=== PATIENT | male | born 2005 | race Caucasian/White ===

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

== ENCOUNTER 2023-01-03 20:21 | Emergency (ER) | payer OTHER ==
[~2023-01-03] VITALS: Ht 175.3 cm; Wt 62.6 kg
[~2023-01-03 20:21] MED LIST changes: +ONDA4ODT MM
== END 2023-01-03 23:12 | disposition home or self-care (01) ==
LOC: ER 20:21
DX: S46.312A Strain of muscle, fascia and tendon of triceps, left arm, initial encounter (principal); X50.0XXA Overexertion from strenuous movement or load, initial encounter; Z88.0 Allergy status to penicillin
CPT/HCPCS: 73080

== ENCOUNTER 2023-02-06 15:58 | Emergency (ER) | payer OTHER ==
[~2023-02-06] VITALS: Ht 175.3 cm; Wt 61.2 kg
[2023-02-06 16:02] VITALS: BP 151/84
[2023-02-06] MEDS ORDERED: CEPH500 PO (16:10)
[2023-02-06] MEDS ORDERED: CLIN300 PO (16:10)
== END 2023-02-06 16:18 | disposition home or self-care (01) ==
LOC: ER 15:58
DX: L03.211 Cellulitis of face (principal); Z88.0 Allergy status to penicillin
CPT/HCPCS: 99282; A9270

== ENCOUNTER 2024-04-19 09:07 | Emergency (ER) | payer SELFPAY ==
[~2024-04-19] VITALS: Ht 175.3 cm; Wt 63.0 kg
[~2024-04-19 09:07] MED LIST changes: +CEPH500 PO; +CLIN300 PO
[2024-04-19] MEDS ORDERED: PROBIOTIC1 EA13 PO (11:01)
[2024-04-19] MEDS ORDERED: DOCU100 PO (11:01)
[2024-04-19] MEDS ORDERED: METAMUCIL POWD798 GM PO (11:01)
[2024-04-19 12:00] VITALS: BP 118/68
[2024-04-19 14:06] LABS: Calcium, Ionized (POC) 1.27 mmol/L (1.10-1.46); Chloride (POC) 103 mmol/L (98-108); Creatinine (POC) 1.1 mg/dL (0.8-1.3); Glucose (ISTAT POC) 91 mg/dL (70-99); Hemoglobin (POC) 15.3 g/dL (13.5-17.5); Potassium (POC) 4.1 mmol/L (3.5-5.5); Sodium (POC) 141 mmol/L (135-148); Total CO2 (POC) 28 mmol/L (21-32)
== END 2024-04-19 12:04 | disposition home or self-care (01) ==
LOC: ER 09:07
PROVIDERS: Emergency Medicine
DX: K92.1 Melena (principal); F17.210 Nicotine dependence, cigarettes, uncomplicated; Z88.0 Allergy status to penicillin
CPT/HCPCS: 80047; 85014; 99283

== ENCOUNTER 2025-01-29 17:33 | Emergency (ER) | payer SELFPAY ==
[~2025-01-29] VITALS: Ht 170.2 cm; Wt 81.7 kg
[~2025-01-29 17:33] MED LIST changes: +DOCU100 PO; +METAMUCIL POWD798 GM PO; +PROBIOTIC1 EA13 PO
[2025-01-29 17:51] VITALS: BP 116/98
[2025-01-29] MEDS ORDERED: Oxymetazoline 0.05% Nasal Relief Spray 15mL BTL ONE (17:55)
== END 2025-01-29 18:45 | disposition home or self-care (01) ==
LOC: ER 17:33
DX: R04.0 Epistaxis (principal); F17.200 Nicotine dependence, unspecified, uncomplicated; Z88.0 Allergy status to penicillin; Z79.899 Other long term (current) drug therapy
CPT/HCPCS: 30901; 99283-25; A9270